=== PATIENT | female | born 2005 | race Caucasian/White ===

== ENCOUNTER 2024-02-23 13:44 | Outpatient (CLI) | payer OTHER, SELFPAY ==
[2024-02-23 21:32] LABS: Chlamydia DNA Amplified* NOT DETECTED (No Detected); GC DNA Amplified* NOT DETECTED (No Detected)
== END 2024-02-23 13:45 | disposition home or self-care (01) ==
PROVIDERS: PCP Registered Nurse; Visit Provider Registered Nurse
DX: Z11.3 Encounter for screening for infections with a predominantly sexual mode of transmission (principal); Z13.220 Encounter for screening for lipoid disorders; Z13.1 Encounter for screening for diabetes mellitus
CPT/HCPCS: 80061; 82947; 86592; 86703; 86803; 87340; 87491; 87591